=== PATIENT | female | born 1955 | race Caucasian/White ===

== ENCOUNTER 2023-03-05 17:00 | Inpatient (IN) | payer OTHER, SELFPAY ==
[2023-03-05] VITALS (20 sets, daily range): BP systolic 120–164; BP diastolic 61–77; PULSE 87–112; RESP 13–27; TEMP 36.3–37; O2SAT 97–100; BMI 24.3
--- NOTE | 2023-03-05 17:19 | DI.RAD.S_ITS ---
PROCEDURE: XR CHEST 1V INDICATIONS: chest pain TECHNIQUE: One view of the chest was acquired. COMPARISON: None. FINDINGS: Surgical changes and devices: None. Lungs and pleura: Lungs are clear. No pleural effusions or pneumothorax. Mediastinum: The cardiac contours are within normal limits. The aorta demonstrates calcification and tortuosity. Bones and chest wall: No suspicious bony lesions. Age-appropriate bony degenerative changes are seen. Overlying soft tissues appear unremarkable. IMPRESSION: No acute cardiopulmonary process is seen. Dictated by: Stevo Nino M.D. on 03/05/2023 at 17:16 Approved by: Stevo Nino M.D. on 03/05/2023 at 17:16
[2023-03-05 17:37] LABS: Mean Corpuscular HGB Conc 28.2 % (30-36); Mean Corpuscular Hemoglobin 15.4 PG (26-34); Mean Corpuscular Volume 54.5 fL (80-100); Platelet Count 101 X10^3/uL (150-400); Red Blood Cell Count 2.47 X10^6/uL (4.0-5.2); Red Cell Distribution Width 20.4 % (11.6-14.8)
[2023-03-05 17:44] LABS: Prothrombin Time 22.6 SECONDS (10.1-12.7)
[2023-03-05 17:47] LABS: PTT Partial Thromboplastin Tim 35 SECONDS (26-36)
[2023-03-05 17:48] LABS: Alanine Aminotransferase 24 IU/L (<35); Alkaline Phosphatase 104 U/L (38-126); Aspartate Aminotransferase 33 IU/L (14-36); BUN Creatinine Ratio 18.9 (6-22); Bilirubin Total 0.9 mg/dL (0.2-1.3); Blood Urea Nitrogen 10 mg/dL (7-17); Calcium 7.8 mg/dL (8.4-10.2); Carbon Dioxide 16 mmol/L (22-32); Chloride 110 mmol/L (98-107); Creatine Kinase 49 U/L (30-135); Estimated Glomerular Filt Rate > 60 mL/min (>60); Globulin 3.1 g/dL (1.7-4.1); Glucose 125 mg/dL (80-110); HEMOLYSIS < 15 (0-50); Lipase 438 U/L (23-300); Magnesium 2.1 mg/dL (1.6-2.3); Potassium 3.3 mmol/L (3.4-5.1); Sodium 137 mmol/L (137-145); Total Protein 6.1 g/dL (6.3-8.2)
[2023-03-05 17:59] LABS: Troponin I 0.019 ng/mL (0.01-0.034)
[2023-03-05 18:08] LABS: Hemoglobin 3.8 g/dL (12.0-16.0)
[2023-03-05 18:09] LABS: Add Manual Diff / Slide Review YES; Hematocrit 13.5 % (36-46)
[2023-03-05 18:20] LABS: Microcytosis 3+; Neutrophils Absolute Manual 1800 /uL (3000-5900); Total Cells Counted 100
[2023-03-05 18:21] LABS: Anisocytosis 1+; Hypochromasia 3+
[2023-03-05 18:22] LABS: NT-proBNP (BNP-Adult 18+) 692 pg/mL (<125)
[2023-03-05 18:26] LABS: COVID19 -Nasal RAPID Negative (Negative)
--- NOTE | 2023-03-05 18:57 | DI.CT.S_ITS ---
PROCEDURE: CT CHEST ABD PEL W CON INDICATIONS: pancytopenia;hgb 3.8 TECHNIQUE: After the administration of oral and intravenous contrast, axial sections acquired from the supraclavicular neck to the pubic symphysis. Coronal and sagittal reformats were performed. For radiation dose reduction, the following was used: automated exposure control, adjustment of mA and/or kV according to patient size. COMPARISON: None. FINDINGS: Image quality: Excellent. CHEST: Lower Neck: No enlarged lymph nodes. Thyroid: Within normal limits. Axillae: No enlarged lymph nodes. Chest Wall: Unremarkable. Lungs and Airways: No acute airspace opacity. Left lower lobe pulmonary nodule measuring 0.4 cm. Airways are clear. Pleura: No pneumothorax or pleural effusions. Heart: Heart size is normal. No pericardial effusion. Thoracic Vessels: The aorta and pulmonary arteries demonstrate normal size. Moderate plaque at the aortic arch. Mediastinum and Radha: No enlarged lymph nodes. Esophagus: No wall thickening. No hiatal hernia. ABDOMEN: Liver: Cirrhotic liver morphology. No focal lesion is identified on this single phase exam.. Gallbladder: Small gallstones. Trace pericholecystic fluid. Not distended. Biliary ducts: Unremarkable. Pancreas: Unremarkable. Spleen: Spleen is at the upper limits of normal. Adrenal Glands: Unremarkable. Kidneys and Ureters: No hydronephrosis. Stomach and Bowel: Stomach, small bowel loops, and colon are unremarkable. Small duodenal diverticulum. Diverticulosis. Normal appendix. Peritoneum: Small to moderate volume of ascites. No pneumoperitoneum. Ventral Wall: No hernia. Abdominal Nodes: No retroperitoneal or mesenteric adenopathy by size criteria. Vessels: Aortic ectasia. Moderate to severe plaque. Upper abdominal varices. Portal vein is patent. PELVIS: Pelvic Organs: Unremarkable. Bladder: Unremarkable. Pelvic Nodes: No enlarged lymph nodes. Miscellaneous: No inguinal hernias are seen. Bones: No suspicious lesion. No compression fracture. Lower lumbar spine DDD. IMPRESSION: 1. Lungs are clear. 2. Cirrhosis. Consider screening for HCC with multiphase liver CT or MRI. 3. [id number] volume of ascites. Upper abdominal varices. 4. Gallstones. 5. No adenopathy. Dictated by: Oliver Montiel M.D. on 03/05/2023 at 20:23 Approved by: Oliver Montiel M.D. on 03/05/2023 at 20:33
--- NOTE | 2023-03-05 20:15 | ED.SOB ---
HPI - SOB/Dyspnea <[place] PA-C - Last Filed: 03/05/23 21:33> General Chief Complaint: Shortness of Breath/Dyspnea Stated Complaint: short of breath, chest pain Time Seen by Provider: 03/05/23 17:40 History of Present Illness HPI Narrative: 68-year-old female with no reported past medical history Hep C, s/p treatment for HepC presents to the ED with 4-6 weeks of fatigue, dyspnea, chest tightness. Patient states that she has had worsening symptoms over the last 4 to week 6 weeks. Denies fever, chills, rhinorrhea, cough, sore throat, abdominal pain, dysuria, dizziness, syncope. Patient does endorse feeling winded after walking a few steps, sometimes feels lightheaded but has never syncopized. Patient takes daily baby aspirin which she was advised to do several years ago. Patient denies hematochezia, melena, diarrhea, constipation. Patient is a daily smoker, has smoked since age 12. Patient drinks about 2 alcoholic drinks daily. Related Data Home Medications Medication Instructions Recorded Confirmed No Known Home Medications 01/06/20 03/05/23 Allergies Allergy/AdvReac Type Severity Reaction Status Date / Time Sulfa (Sulfonamide Allergy Mild stomach Verified 03/05/23 19:36 Antibiotics) issues Review of Systems <[place] PA-C - Last Filed: 03/05/23 21:33> Review of Systems ROS Unobtainable: All systems reviewed & are unremarkable except as noted in HPI and below Constitutional Constitutional: Denies chills, Reports fatigue, Denies fever(s), Denies frequent falls, Reports lethargy and Denies weakness Comments: Lightheadedness Eyes Eyes: Denies change in vision, Denies eye discharge, Denies irritation and Denies loss of vision ENT Ears, Nose, Mouth, and Throat: Denies change in voice, Denies dizziness, Denies neck pain, Denies sore throat and Denies throat swelling Cardiovascular Cardiovascular: Denies chest pain, Denies irregular heart rhythm, Denies lightheadedness, Denies palpitations, Reports dyspnea, Reports dyspnea on exertion and Denies orthopnea Respiratory Respiratory: Denies cough, Reports dyspnea, Reports dyspnea on exertion and Denies wheezing Gastrointestinal Gastrointestinal: Denies abdominal pain, Denies change in bowel habits, Denies diarrhea, Denies nausea and Denies vomiting Genitourinary Genitourinary: Denies hematuria, Denies flank pain, Denies urinary incontinence and Denies urinary urgency Musculoskeletal Musculoskeletal: Denies back pain, Denies muscle weakness, Denies neck pain, Denies numbness and Denies tingling Integumentary/Breasts Skin/Breast: Denies pruritus, Denies erythema, Denies rash and Denies wounds Neurologic Neurologic: Denies behavioral changes, Denies confusion, Denies dizziness, Denies frequent falls, Denies loss of vision, Denies numbness, Denies tingling and Denies weakness Psychiatric Psychiatric: Denies anxiety, Denies behavioral changes, Denies confusion, Denies depression, Denies homicidal ideation and Denies suicidal ideation Endocrine Endocrine: Reports fatigue, Denies flushing and Denies palpitations Hematologic/Lymphatic Hematologic/Lymphatic: Denies easy bruising Allergic/Immunologic Allergic/Immunologic: Denies urticaria, Denies throat swelling and Denies wheezing Patient History <[place] PA-C - Last Filed: 03/05/23 21:33> Medical History (Updated 03/05/23 @ 21:33 by Toro Thomas DO) Bronchitis Social History Smoking Status: Current every day smoker Smoking Status: Current every day smoker tobacco type: cigarettes alcohol intake frequency: a few times a week Substance Use Type: does not use Exam <[place] PA-C - Last Filed: 03/05/23 21:33> Narrative Exam Narrative: Const General:?cooperative, healthy appearing and comfortable; skin appears pale HENMT Head:?normal to inspection Ears:?hearing grossly normal bilaterally Nose:?external nose normal Face and sinus:?normal facial exam and sinuses nontender Mouth:?oral mucosae normal Throat:?posterior oropharynx normal Eyes General:?appearance normal, both eyes and all related structures Neck Neck:?normal visual inspection and no lymphadenopathy noted Resp Effort & Inspection:? Patient is saturating well on room air, appears somewhat out of breath when talking. However is able to talk full sentences. Auscultation:?clear to auscultation bilaterally Cardio Rate:?regular rate Rhythm:?regular rhythm GI Abdomen is soft, somewhat distended. Abdomen is nontender to palpation. There is no CVA tenderness. Neuro General:?patient alert, patient awake and patient oriented x3 Initial Vital Signs Initial Vital Signs: Vital Signs Temperature 97.4 F L 03/05/23 17:10 Pulse Rate 88 03/05/23 17:10 Respiratory Rate 18 03/05/23 17:10 Blood Pressure 147/65 H 03/05/23 17:10 Pulse Oximetry 100 03/05/23 17:10 Oxygen Delivery Method Room Air 03/05/23 17:10 <Toro Thomas DO - Last Filed: 03/05/23 21:40> Initial Vital Signs Initial Vital Signs: Vital Signs Temperature 97.4 F L 03/05/23 17:10 Pulse Rate 88 03/05/23 17:10 Respiratory Rate 18 03/05/23 17:10 Blood Pressure 147/65 H 03/05/23 17:10 Pulse Oximetry 100 03/05/23 17:10 Oxygen Delivery Method Room Air 03/05/23 17:10 Course <[place] PA-C - Last Filed: 03/05/23 21:33> Orders Ordered: ED Orders 03/05/23 17:19 XR chest 1V Stat EKG-12 Lead Stat 03/05/23 17:25 BNP [NT-proBNP (BNP-Adult 18+)] Stat Complete Blood Count AUTO DIFF Stat Comprehensive Metabolic Panel Stat Lipase Stat Magnesium Stat PTT Partial Thromboplastin Trevor Stat Pathologist Review (for CBC) Stat Prothrombin Time INR Stat Troponin & CK Cardiac Panel Stat 03/05/23 17:57 Packed Cells Stat Type and Screen Stat 03/05/23 18:00 COVID19 -Nasal RAPID Stat 03/05/23 18:57 CT chest abd pel w con Stat Vital Signs Vital signs: Vital Signs - 8 hr 03/05/23 17:10 03/05/23 17:44 03/05/23 18:00 Temperature 97.4 F L Pulse Rate 88 110 H Respiratory Rate 18 27 H Blood Pressure 147/65 H 159/73 H Pulse Oximetry 100 100 Oxygen Delivery Method Room Air 03/05/23 18:00 03/05/23 19:11 03/05/23 19:25 Temperature 97.7 F 98.4 F Pulse Rate 95 H 101 H 92 H Respiratory Rate 17 22 22 Blood Pressure 164/73 H 146/65 H Pulse Oximetry 100 Oxygen Delivery Method 03/05/23 18:30 03/05/23 18:30 03/05/23 19:00 Temperature Pulse Rate 92 H Respiratory Rate 15 Blood Pressure 125/61 147/67 H Pulse Oximetry 99 Oxygen Delivery Method 03/05/23 19:00 03/05/23 19:10 03/05/23 19:10 Temperature Pulse Rate 87 112 H Respiratory Rate 23 20 Blood Pressure 164/73 H Pulse Oximetry 100 Oxygen Delivery Method Room Air 03/05/23 19:36 03/05/23 19:26 03/05/23 19:26 Temperature 98.3 F Pulse Rate 89 92 H Respiratory Rate 20 23 Blood Pressure 146/65 H Pulse Oximetry 100 Oxygen Delivery Method Room Air 03/05/23 19:30 03/05/23 19:30 03/05/23 20:00 Temperature Pulse Rate 89 93 H Respiratory Rate 17 18 Blood Pressure 147/69 H Pulse Oximetry 100 100 Oxygen Delivery Method 03/05/23 20:00 03/05/23 20:30 03/05/23 20:30 Temperature Pulse Rate 87 Respiratory Rate 13 Blood Pressure 152/68 H 141/67 H Pulse Oximetry 100 Oxygen Delivery Method Room Air 03/05/23 21:00 03/05/23 21:00 Temperature Pulse Rate 89 Respiratory Rate 20 Blood Pressure 156/70 H Pulse Oximetry 100 Oxygen Delivery Method Room Air <Toro Thomas, DO - Last Filed: 03/05/23 21:40> Orders Ordered: ED Orders 03/05/23 17:19 XR chest 1V Stat EKG-12 Lead Stat 03/05/23 17:25 BNP [NT-proBNP (BNP-Adult 18+)] Stat Complete Blood Count AUTO DIFF Stat Comprehensive Metabolic Panel Stat Lipase Stat Magnesium Stat PTT Partial Thromboplastin Trevor Stat Pathologist Review (for CBC) Stat Prothrombin Time INR Stat Troponin & CK Cardiac Panel Stat 03/05/23 17:57 Packed Cells Stat Type and Screen Stat 03/05/23 18:00 COVID19 -Nasal RAPID Stat 03/05/23 18:57 CT chest abd pel w con Stat Vital Signs Vital signs: Vital Signs - 8 hr 03/05/23 17:10 03/05/23 17:44 03/05/23 18:00 Temperature 97.4 F L Pulse Rate 88 110 H Respiratory Rate 18 27 H Blood Pressure 147/65 H 159/73 H Pulse Oximetry 100 100 Oxygen Delivery Method Room Air 03/05/23 18:00 03/05/23 19:11 03/05/23 19:25 Temperature 97.7 F 98.4 F Pulse Rate 95 H 101 H 92 H Respiratory Rate 17 22 22 Blood Pressure 164/73 H 146/65 H Pulse Oximetry 100 Oxygen Delivery Method 03/05/23 18:30 03/05/23 18:30 03/05/23 19:00 Temperature Pulse Rate 92 H Respiratory Rate 15 Blood Pressure 125/61 147/67 H Pulse Oximetry 99 Oxygen Delivery Method 03/05/23 19:00 03/05/23 19:10 03/05/23 19:10 Temperature Pulse Rate 87 112 H Respiratory Rate 23 20 Blood Pressure 164/73 H Pulse Oximetry 100 Oxygen Delivery Method Room Air 03/05/23 19:36 03/05/23 19:26 03/05/23 19:26 Temperature 98.3 F Pulse Rate 89 92 H Respiratory Rate 20 23 Blood Pressure 146/65 H Pulse Oximetry 100 Oxygen Delivery Method Room Air 03/05/23 19:30 03/05/23 19:30 03/05/23 20:00 Temperature Pulse Rate 89 93 H Respiratory Rate 17 18 Blood Pressure 147/69 H Pulse Oximetry 100 100 Oxygen Delivery Method 03/05/23 20:00 03/05/23 20:30 03/05/23 20:30 Temperature Pulse Rate 87 Respiratory Rate 13 Blood Pressure 152/68 H 141/67 H Pulse Oximetry 100 Oxygen Delivery Method Room Air 03/05/23 21:00 03/05/23 21:00 Temperature Pulse Rate 89 Respiratory Rate 20 Blood Pressure 156/70 H Pulse Oximetry 100 Oxygen Delivery Method Room Air MDM - SOB/Dyspnea <[place] PA-C - Last Filed: 03/05/23 21:33> Lab Data 03/05/23 17:25 03/05/23 17:25 Labs: Lab Results 03/05/23 03/05/23 03/05/23 Range/Units 17:25 17:25 17:25 WBC 3.0 L (4.5-11.0) X10^3/uL RBC 2.47 L (4.0-5.2) X10^6/uL Hgb 3.8 L* (12.0-16.0) g/dL Hct 13.5 L* (36-46) % MCV 54.5 L (80-100) fL MCH 15.4 L (26-34) PG MCHC 28.2 L (30-36) % RDW 20.4 H (11.6-14.8) % Plt Count 101 L (150-400) X10^3/uL Neut % (Auto) Not Reportable Lymph % (Auto) Not Reportable [place] % (Auto) Not Reportable Eos % (Auto) Not Reportable Baso % (Auto) Not Reportable Lymph # (Auto) Not Reportable [place] # (Auto) Not Reportable Baso # (Auto) Not Reportable Total Counted 100 Seg Neutrophils % 59.0 (38-70) % Band Neutrophils % 1.0 L (3-7) % Lymphocytes % (Manual) 29.0 (25-45) % Monocytes % (Manual) 7.0 (2-11) % Eosinophils % (Manual) 3.0 (2-4) % Basophils % (Manual) 1.0 (0-1) % Neutrophils # (Manual) 1800 L (1138-1237) /uL RBC Morphology See below Hypochromasia 3+ H Anisocytosis 1+ H Microcytosis 3+ H PT 22.6 H (10.1-12.7) SECONDS INR 2.0 H (0.9-1.3) APTT 35 (26-36) SECONDS Sodium 137 (137-145) mmol/L Potassium 3.3 L (3.4-5.1) mmol/L Chloride 110 H (98-107) mmol/L Carbon Dioxide 16 L (22-32) mmol/L BUN 10 (7-17) mg/dL Creatinine 0.53 (0.52-1.04) mg/dL Estimated GFR > 60 (>60) mL/min BUN/Creatinine Ratio 18.9 (6-22) Glucose 125 H (80-110) mg/dL Calcium 7.8 L (8.4-10.2) mg/dL Magnesium 2.1 (1.6-2.3) mg/dL Total Bilirubin 0.9 (0.2-1.3) mg/dL AST 33 (14-36) IU/L ALT 24 (<35) IU/L Alkaline Phosphatase 104 (38-126) U/L Total Creatine Kinase 49 (30-135) U/L CK-MB (CK-2) TNP CK-MB (CK-2) Rel Index TNP Troponin I 0.019 (0.01-0.034) ng/mL NT-Pro-B Natriuret Pep (<125) pg/mL Total Protein 6.1 L (6.3-8.2) g/dL Albumin 3.0 L (3.5-5.0) g/dL Globulin 3.1 (1.7-4.1) g/dL Albumin/Globulin Ratio 1.0 (1.0-2.8) Lipase 438 H (23-300) U/L SARS-CoV-2 (PCR) (Negative) Blood Type Antibody Screen Crossmatch 03/05/23 03/05/23 03/05/23 Range/Units 17:25 17:57 18:00 WBC (4.5-11.0) X10^3/uL RBC (4.0-5.2) X10^6/uL Hgb (12.0-16.0) g/dL Hct (36-46) % MCV (80-100) fL MCH (26-34) PG MCHC (30-36) % RDW (11.6-14.8) % Plt Count (150-400) X10^3/uL Neut % (Auto) Lymph % (Auto) [place] % (Auto) Eos % (Auto) Baso % (Auto) Lymph # (Auto) [place] # (Auto) Baso # (Auto) Total Counted Seg Neutrophils % (38-70) % Band Neutrophils % (3-7) % Lymphocytes % (Manual) (25-45) % Monocytes % (Manual) (2-11) % Eosinophils % (Manual) (2-4) % Basophils % (Manual) (0-1) % Neutrophils # (Manual) (6480-9370) /uL RBC Morphology Hypochromasia Anisocytosis Microcytosis PT (10.1-12.7) SECONDS INR (0.9-1.3) APTT (26-36) SECONDS Sodium (137-145) mmol/L Potassium (3.4-5.1) mmol/L Chloride (98-107) mmol/L Carbon Dioxide (22-32) mmol/L BUN (7-17) mg/dL Creatinine (0.52-1.04) mg/dL Estimated GFR (>60) mL/min BUN/Creatinine Ratio (6-22) Glucose (80-110) mg/dL Calcium (8.4-10.2) mg/dL Magnesium (1.6-2.3) mg/dL Total Bilirubin (0.2-1.3) mg/dL AST (14-36) IU/L ALT (<35) IU/L Alkaline Phosphatase (38-126) U/L Total Creatine Kinase (30-135) U/L CK-MB (CK-2) CK-MB (CK-2) Rel Index Troponin I (0.01-0.034) ng/mL NT-Pro-B Natriuret Pep 692 H (<125) pg/mL Total Protein (6.3-8.2) g/dL Albumin (3.5-5.0) g/dL Globulin (1.7-4.1) g/dL Albumin/Globulin Ratio (1.0-2.8) Lipase (23-300) U/L SARS-CoV-2 (PCR) Negative (Negative) Blood Type O Negative Antibody Screen Negative Crossmatch See Detail MDM Narrative Medical decision making narrative: 68-year-old female with no reported past medical history presents to the ED with 4-6 weeks of fatigue, dyspnea, chest tightness. Concern for ACS versus pneumonia versus anemia versus dehydration versus PE versus URI versus malignancy versus other. Will obtain labs, EKG, chest x-ray, troponin, BNP. Hemoglobin critically low at 3.8. Hematocrit 13.5. WBC low at 3.0, platelets low at 101. Will obtain CT chest abdomen pelvis, peripheral blood smear. Will type and screen, transfuse packed RBCs. Transfusion is in progress, patient is tolerating it well. Is stable in the ED. CT shows cirrhosis, with possibility for HCC. There is also [id number] volume of ascites and upper abdominal varices. Child Bell score of 9. Will admit patient for continued transfusions for the anemia and possibly further workup for the cirrhosis. Patient accepted for admission by Dr. Guajardo. <Toro Thomas DO - Last Filed: 03/05/23 21:40> Lab Data Labs: Lab Results 03/05/23 03/05/23 03/05/23 Range/Units 17:25 17:25 17:25 WBC 3.0 L (4.5-11.0) X10^3/uL RBC 2.47 L (4.0-5.2) X10^6/uL Hgb 3.8 L* (12.0-16.0) g/dL Hct 13.5 L* (36-46) % MCV 54.5 L (80-100) fL MCH 15.4 L (26-34) PG MCHC 28.2 L (30-36) % RDW 20.4 H (11.6-14.8) % Plt Count 101 L (150-400) X10^3/uL Neut % (Auto) Not Reportable Lymph % (Auto) Not Reportable [place] % (Auto) Not Reportable Eos % (Auto) Not Reportable Baso % (Auto) Not Reportable Lymph # (Auto) Not Reportable [place] # (Auto) Not Reportable Baso # (Auto) Not Reportable Total Counted 100 Seg Neutrophils % 59.0 (38-70) % Band Neutrophils % 1.0 L (3-7) % Lymphocytes % (Manual) 29.0 (25-45) % Monocytes % (Manual) 7.0 (2-11) % Eosinophils % (Manual) 3.0 (2-4) % Basophils % (Manual) 1.0 (0-1) % Neutrophils # (Manual) 1800 L (2414-7478) /uL RBC Morphology See below Hypochromasia 3+ H Anisocytosis 1+ H Microcytosis 3+ H PT 22.6 H (10.1-12.7) SECONDS INR 2.0 H (0.9-1.3) APTT 35 (26-36) SECONDS Sodium 137 (137-145) mmol/L Potassium 3.3 L (3.4-5.1) mmol/L Chloride 110 H (98-107) mmol/L Carbon Dioxide 16 L (22-32) mmol/L BUN 10 (7-17) mg/dL Creatinine 0.53 (0.52-1.04) mg/dL Estimated GFR > 60 (>60) mL/min BUN/Creatinine Ratio 18.9 (6-22) Glucose 125 H (80-110) mg/dL Calcium 7.8 L (8.4-10.2) mg/dL Magnesium 2.1 (1.6-2.3) mg/dL Total Bilirubin 0.9 (0.2-1.3) mg/dL AST 33 (14-36) IU/L ALT 24 (<35) IU/L Alkaline Phosphatase 104 (38-126) U/L Total Creatine Kinase 49 (30-135) U/L CK-MB (CK-2) TNP CK-MB (CK-2) Rel Index TNP Troponin I 0.019 (0.01-0.034) ng/mL NT-Pro-B Natriuret Pep (<125) pg/mL Total Protein 6.1 L (6.3-8.2) g/dL Albumin 3.0 L (3.5-5.0) g/dL Globulin 3.1 (1.7-4.1) g/dL Albumin/Globulin Ratio 1.0 (1.0-2.8) Lipase 438 H (23-300) U/L SARS-CoV-2 (PCR) (Negative) Blood Type Antibody Screen Crossmatch 03/05/23 03/05/23 03/05/23 Range/Units 17:25 17:57 18:00 WBC (4.5-11.0) X10^3/uL RBC (4.0-5.2) X10^6/uL Hgb (12.0-16.0) g/dL Hct (36-46) % MCV (80-100) fL MCH (26-34) PG MCHC (30-36) % RDW (11.6-14.8) % Plt Count (150-400) X10^3/uL Neut % (Auto) Lymph % (Auto) [place] % (Auto) Eos % (Auto) Baso % (Auto) Lymph # (Auto) [place] # (Auto) Baso # (Auto) Total Counted Seg Neutrophils % (38-70) % Band Neutrophils % (3-7) % Lymphocytes % (Manual) (25-45) % Monocytes % (Manual) (2-11) % Eosinophils % (Manual) (2-4) % Basophils % (Manual) (0-1) % Neutrophils # (Manual) (4203-4924) /uL RBC Morphology Hypochromasia Anisocytosis Microcytosis PT (10.1-12.7) SECONDS INR (0.9-1.3) APTT (26-36) SECONDS Sodium (137-145) mmol/L Potassium (3.4-5.1) mmol/L Chloride (98-107) mmol/L Carbon Dioxide (22-32) mmol/L BUN (7-17) mg/dL Creatinine (0.52-1.04) mg/dL Estimated GFR (>60) mL/min BUN/Creatinine Ratio (6-22) Glucose (80-110) mg/dL Calcium (8.4-10.2) mg/dL Magnesium (1.6-2.3) mg/dL Total Bilirubin (0.2-1.3) mg/dL AST (14-36) IU/L ALT (<35) IU/L Alkaline Phosphatase (38-126) U/L Total Creatine Kinase (30-135) U/L CK-MB (CK-2) CK-MB (CK-2) Rel Index Troponin I (0.01-0.034) ng/mL NT-Pro-B Natriuret Pep 692 H (<125) pg/mL Total Protein (6.3-8.2) g/dL Albumin (3.5-5.0) g/dL Globulin (1.7-4.1) g/dL Albumin/Globulin Ratio (1.0-2.8) Lipase (23-300) U/L SARS-CoV-2 (PCR) Negative (Negative) Blood Type O Negative Antibody Screen Negative Crossmatch See Detail Discharge Plan Departure Patient Disposition: Admitted As Inpatient Clinical Impression: Anemia, Thrombocytopenia, Abdominal ascites, Cirrhosis Admit Date/Time: 03/05/23 21:37 Admit Provider: Kraig Guajardo <Toro Thomas, - Last Filed: 03/05/23 21:40> Cosign ED Attending Cosignature Attestation: Dr Thomas Co-Sign Statement: I was available for consultation during this patient's emergency department visit. This chart is signed by myself for administrative purposes only. I did not have direct contact with this patient during this visit. They were seen independently by the APC.
[2023-03-05 21:45] LABS: Appearance Urine UA CLEAR; Bilirubin Urine UA NEGATIVE (NEGATIVE); Color Urine UA YELLOW; Glucose Urine UA NEGATIVE (Negative); Ketones Urine UA NEGATIVE (NEGATIVE); Leukocyte Esterase Urine UA NEGATIVE (NEGATIVE); Nitrite Urine UA POSITIVE (Negative); Occult Blood Urine UA NEGATIVE (Negative); Protein Urine UA NEGATIVE (Negative)
[2023-03-05 21:56] LABS: Bacteria Urine Many (>30); Culture Indicated Urine Specimen Cultured; RBC Urine None Seen (0-5/HPF); Squamous Epithelial Cell Urine None Seen (0-5/HPF); WBC Urine 0-1/HPF (0-5/HPF)
[2023-03-05] MEDS: ACETAMINOPHEN 325 MG TABLET 650 MG PO (23:59)
[2023-03-06] VITALS (22 sets, daily range): BP systolic 115–148; BP diastolic 60–75; PULSE 72–93; RESP 16–21; TEMP 36.6–37.1; O2SAT 94–100
[2023-03-06 06:49] LABS: Basophils Absolute Auto 100 /uL (0-100); Basophils Percent Auto 1.7 % (0-2); Eosinophils Absolute Auto 100 /uL (0-450); Eosinophils Percent Auto 4.4 % (2-4); Hematocrit 21.4 % (36-46); Lymphocytes Absolute Auto 1000 /uL (1100-4500); Lymphocytes Percent Auto 29.3 % (25-40); Mean Corpuscular HGB Conc 31.9 % (30-36); Mean Corpuscular Hemoglobin 20.4 PG (26-34); Mean Corpuscular Volume 63.9 fL (80-100); Monocytes Absolute Auto 600 /uL (0-900); Monocytes Percent Auto 17.8 % (3-14); Neutrophils Absolute Auto 1600 /uL (1500-7000); Neutrophils Percent Auto 46.8 % (50-75); Platelet Count 90 X10^3/uL (150-400); Red Blood Cell Count 3.34 X10^6/uL (4.0-5.2); White Blood Cell Count 3.4 X10^3/uL (4.5-11.0)
[2023-03-06 06:52] LABS: Add Manual Diff / Slide Review SLIDE REVIEW; Hemoglobin 6.8 g/dL (12.0-16.0)
[2023-03-06 06:53] LABS: Alanine Aminotransferase 21 IU/L (<35); Albumin 2.7 g/dL (3.5-5.0); Alkaline Phosphatase 95 U/L (38-126); Aspartate Aminotransferase 28 IU/L (14-36); Bilirubin Total 4.2 mg/dL (0.2-1.3); Blood Urea Nitrogen 8 mg/dL (7-17); Calcium 7.5 mg/dL (8.4-10.2); Carbon Dioxide 17 mmol/L (22-32); Chloride 113 mmol/L (98-107); Estimated Glomerular Filt Rate > 60 mL/min (>60); Globulin 2.8 g/dL (1.7-4.1); Glucose 85 mg/dL (80-110); HEMOLYSIS < 15 (0-50); Lipase 211 U/L (23-300); Potassium 3.3 mmol/L (3.4-5.1); Sodium 137 mmol/L (137-145); Total Protein 5.5 g/dL (6.3-8.2)
[2023-03-06 07:47] LABS: Hypochromasia 2+; Microcytosis 3+; Poikilocytosis 1+
[2023-03-06] MEDS: POTASSIUM CHLORIDE 20 MEQ TAB 40 MEQ PO ×2 (08:54→18:28)
--- NOTE | 2023-03-06 09:16 | P.HP_ITS ---
History of Present Illness History of Present Illness Date Patient Seen: 03/06/23 Time Patient Seen: 09:17 Date of Onset of Symptoms: 02/20/23 Chief complaint: short of breath, chest pain Narrative: Pt presented to ED with 2 weeks of worsening fatigue. Found to be pancytopenic. 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 Reports hx of hepatitis as a teen that was never treated - tested positive for HCV as an adult and did receive treatment 6-7 years ago was told cured. CT shows cirrhosis/possible HCC and moderate ascites. Feels generally ok this morning after 4 Us PRBCs - some wheezing noted, able to get up and get to bathroom ok feels steady on her feet. appetite has been ok, no recent illness, no nausea no bwel issues no headaches just mostly fatigue. [facility] Medical History (Updated 03/05/23 @ 21:33 by Toro Thomas DO) Bronchitis Social History household members: none Smoking Status: Current every day smoker alcohol intake: current Meds Home Medications and Allergies Home Medications Medication Instructions Recorded Confirmed Type No Known Home Medications 01/06/20 03/05/23 History Allergies Allergy/AdvReac Type Severity Reaction Status Date / Time Sulfa (Sulfonamide Allergy Mild stomach Verified 03/05/23 19:36 Antibiotics) issues Review of Systems Review of Systems Narrative: all systems reviewed and negative except as otherwise noted in HPI Exam Vital Signs (past 8 hours): - 03/06/23 03:20 03/06/23 03:29 03/06/23 03:45 Temperature 98.7 F 98.8 F 98.2 F Pulse Rate 88 88 88 Respiratory Rate 18 18 18 Blood Pressure 124/70 124/70 132/74 Pulse Oximetry Oxygen Flow Rate 03/06/23 04:00 03/06/23 03:51 03/06/23 08:00 Temperature 98.2 F 98.6 F 98.2 F Pulse Rate 82 89 81 Respiratory Rate 18 18 17 Blood Pressure 130/62 128/65 115/63 Pulse Oximetry 98 94 Oxygen Flow Rate 0 Oxygen Delivery Method Room Air Oxygen Flow Rate 0 Narrative Exam Narrative: cheerful lady laying in hospital bed Resp Other: moving air ok not on supplemental o2, bibasilar crackles, mild wheezing expiratory Cardio Other: regular rate and rhythm, s1/s2 GI Other: normal bowel sounds no CVA TTP Skin Other: color ok, refill <3secs Neuro General: patient alert, patient awake and patient oriented x3 Extrem General: full ROM and no pedal edema Psych Appearance: grossly normal Mental Status: mental status grossly normal Speech and Movement: speech and movement normal Objective Labs 03/06/23 17:45 03/06/23 06:30 Labs: Laboratory Results - last 24 hr 03/05/23 03/05/23 03/05/23 17:25 17:25 17:25 WBC 3.0 L RBC 2.47 L Hgb 3.8 L* Hct 13.5 L* MCV 54.5 L MCH 15.4 L MCHC 28.2 L RDW 20.4 H Plt Count 101 L Neut % (Auto) Not Reportable Lymph % (Auto) Not Reportable Gl[place]ock % (Auto) Not Reportable Eos % (Auto) Not Reportable Baso % (Auto) Not Reportable Neut # (Auto) Lymph # (Auto) Not Reportable [place] # (Auto) Not Reportable Eos # (Auto) Baso # (Auto) Not Reportable Total Counted 100 Seg Neutrophils % 59.0 Band Neutrophils % 1.0 L Lymphocytes % (Manual) 29.0 Monocytes % (Manual) 7.0 Eosinophils % (Manual) 3.0 Basophils % (Manual) 1.0 Neutrophils # (Manual) 1800 L RBC Morphology See below Hypochromasia 3+ H Poikilocytosis Anisocytosis 1+ H Microcytosis 3+ H PT 22.6 H INR 2.0 H APTT 35 Sodium 137 Potassium 3.3 L Chloride 110 H Carbon Dioxide 16 L BUN 10 Creatinine 0.53 Estimated GFR > 60 BUN/Creatinine Ratio 18.9 Glucose 125 H Calcium 7.8 L Magnesium 2.1 Total Bilirubin 0.9 AST 33 ALT 24 Alkaline Phosphatase 104 Total Creatine Kinase 49 CK-MB (CK-2) TNP CK-MB (CK-2) Rel Index TNP Troponin I 0.019 NT-Pro-B Natriuret Pep Total Protein 6.1 L Albumin 3.0 L Globulin 3.1 Albumin/Globulin Ratio 1.0 Lipase 438 H Urine Color Urine Appearance Urine pH Ur Specific Glide Urine Protein Urine Glucose (UA) Urine Ketones Urine Occult Blood Urine Nitrate Urine Bilirubin Urine Urobilinogen Ur Leukocyte Esterase Urine RBC Urine WBC Ur Squamous Epith Cells Urine Bacteria Ur Culture Indicated? SARS-CoV-2 (PCR) Blood Type Antibody Screen Crossmatch 03/05/23 03/05/23 03/05/23 17:25 17:57 18:00 WBC RBC Hgb Hct MCV MCH MCHC RDW Plt Count Neut % (Auto) Lymph % (Auto) Glascock % (Auto) Eos % (Auto) Baso % (Auto) Neut # (Auto) Lymph # (Auto) [place] # (Auto) Eos # (Auto) Baso # (Auto) Total Counted Seg Neutrophils % Band Neutrophils % Lymphocytes % (Manual) Monocytes % (Manual) Eosinophils % (Manual) Basophils % (Manual) Neutrophils # (Manual) RBC Morphology Hypochromasia Poikilocytosis Anisocytosis Microcytosis PT INR APTT Sodium Potassium Chloride Carbon Dioxide BUN Creatinine Estimated GFR BUN/Creatinine Ratio Glucose Calcium Magnesium Total Bilirubin AST ALT Alkaline Phosphatase Total Creatine Kinase CK-MB (CK-2) CK-MB (CK-2) Rel Index Troponin I NT-Pro-B Natriuret Pep 692 H Total Protein Albumin Globulin Albumin/Globulin Ratio Lipase Urine Color Urine Appearance Urine pH Ur Specific Glide Urine Protein Urine Glucose (UA) Urine Ketones Urine Occult Blood Urine Nitrate Urine Bilirubin Urine Urobilinogen Ur Leukocyte Esterase Urine RBC Urine WBC Ur Squamous Epith Cells Urine Bacteria Ur Culture Indicated? SARS-CoV-2 (PCR) Negative Blood Type O Negative Antibody Screen Negative Crossmatch See Detail 03/05/23 03/06/23 03/06/23 21:36 06:30 06:30 WBC 3.4 L RBC 3.34 L Hgb 6.8 L* Hct 21.4 L MCV 63.9 L D MCH 20.4 L MCHC 31.9 D RDW 30.0 H Plt Count 90 L Neut % (Auto) 46.8 L Lymph % (Auto) 29.3 Glascock % (Auto) 17.8 H Eos % (Auto) 4.4 H Baso % (Auto) 1.7 Neut # (Auto) 1600 Lymph # (Auto) 1000 L [place] # (Auto) 600 Eos # (Auto) 100 Baso # (Auto) 100 Total Counted Seg Neutrophils % Band Neutrophils % Lymphocytes % (Manual) Monocytes % (Manual) Eosinophils % (Manual) Basophils % (Manual) Neutrophils # (Manual) RBC Morphology Not Reportable Hypochromasia 2+ H Poikilocytosis 1+ H Anisocytosis Microcytosis 3+ H PT INR APTT Sodium 137 Potassium 3.3 L Chloride 113 H Carbon Dioxide 17 L BUN 8 Creatinine 0.47 L Estimated GFR > 60 BUN/Creatinine Ratio 17.0 Glucose 85 Calcium 7.5 L Magnesium Total Bilirubin 4.2 H AST 28 ALT 21 Alkaline Phosphatase 95 Total Creatine Kinase CK-MB (CK-2) CK-MB (CK-2) Rel Index Troponin I NT-Pro-B Natriuret Pep Total Protein 5.5 L Albumin 2.7 L Globulin 2.8 Albumin/Globulin Ratio 1.0 Lipase 211 D Urine Color Yellow Urine Appearance Clear Urine pH 6.0 Ur Specific Glide 1.020 Urine Protein Negative Urine Glucose (UA) Negative Urine Ketones Negative Urine Occult Blood Negative Urine Nitrate Positive H Urine Bilirubin Negative Urine Urobilinogen 1.0 Ur Leukocyte Esterase Negative Urine RBC None seen Urine WBC 0-1/hpf Ur Squamous Epith Cells None seen Urine Bacteria Many (>30) H Ur Culture Indicated? Specimen cultured SARS-CoV-2 (PCR) Blood Type Antibody Screen Crossmatch Assessment & Plan Assessment & Plan narrative: #acute microcytic anemia present on admission Hgb 6.8 this morning after 4 Us will put in for 2 more mildly wheezy will put in some lasix iv also adding some albumin which is low iron deficiency component vs ACD? CBC recheck after xfusions and in a.m. #UTI asymptomatic but in this setting will go ahead and treat rocephin 1g #tobacco abuse prn nicotine patch ordered #cirrhosis #neutropenia #thrombocytopenia #ascites #hx of benign hypertension not on meds #hx of hepatitis C #hyperbilirubinemia complex set of issues here that will need further diagnostic testing. possible underlying HCC? will check HCV ab/reflex quant see if reinfection/failure of cure perhaps? dispo: patient is extremely ill with multiple significant metabolic derangements - her acute anemia on presentation is very risky and requires close management in setting of general pancytopenia and new hepatic issues PCP: vice Brendan Soliz MDM: Dalia or Elmer Sierra code: full diet: heart healthy
[2023-03-06] MEDS: NICOTINE 14 PATCH 14 MG TOP (10:16)
[2023-03-06] MEDS: ALBUMIN HUMAN 50 GM/200 ML VIAL IV (10:18)
[2023-03-06] MEDS: cefTRIAXone 1,000 MG in SODIUM CHLORIDE 0.9% 100 ML 200 MG IV (10:29)
[2023-03-06] MEDS: FUROSEMIDE 40 MG/4 ML VIAL IV (10:29)
--- NOTE | 2023-03-06 11:32 | PC.NURSE ---
[address] Soliz to inform him that there is only one unit of PRBCs in the blood bank for patient and that the blood bank is talking to the pathologist to try to open up more units. Awaiting response from Dr. Soliz. Awaiting more info from the bloodbank.
[2023-03-06] MEDS: HYDROCODONE/ACET 5/325 TABLET 1 TAB PO (12:33)
[2023-03-06] MEDS: CYCLOBENZAPRINE 10 MG TABLET PO (14:42)
--- NOTE | 2023-03-06 17:43 | CM.IDA ---
Initial DCP Assessment Patient is 68 y/o female who presents to due to concern for chest tightness, fatigue and dyspnea. Patient was admitted to to treat Anemia, Thrombocytopenia, Abdominal ascites, and Cirrhosis. Patient has hx Hepatitis C, and ETOH and tobacco use. Patient's PCP is Dr. Soliz, patient has [employer] advantage insurance. HAIR CLIPPER POWER enters room to meet with patient, present in room is patient's daughter and sister. Patient presents as A/Ox4, patient endorses independence with ADLs, patient endorses she drives. 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 Patient endorses several local family supports. Patient endorses she will receive ride home upon d/c from family member. Patient denies any DCP needs. Plan: Patient to d/c to home with family upon medical clearance, No DCP needs at this time. DCP to f/u with any further needs upon POC. MAYELIN Jeronimo Discharge Planning/Care Management CM Discharge Assessment Start: 03/06/23 17:42 Freq: Status: Active Protocol: Document 03/06/23 17:42 LN (Rec: 03/06/23 17:43 LN [id number]) Discharge Planning Assessment Assigned Top Stop Attacher MAYELIN Cedeno Advance Directives? Yes Advance Directives on File No History Provided By Patient,Medical Record Has Patient been admitted in last 30 No days? Prior Living Arrangements House Household Members none Type of transporation used prior to Drives own vehicle admit Independent with ADL's Yes Is patient alert and oriented? Yes Discharge Plan Home Transportation Arrangement Family Referrals Initiated None needed Please Provide Date Initial DC 03/06/23 Assessment Was Performed
[2023-03-06 17:54] LABS: Hematocrit 24.3 % (36-46); Hemoglobin 7.8 g/dL (12.0-16.0); Mean Corpuscular HGB Conc 32.1 % (30-36); Mean Corpuscular Hemoglobin 21.1 PG (26-34); Mean Corpuscular Volume 65.8 fL (80-100); Platelet Count 95 X10^3/uL (150-400); Red Blood Cell Count 3.69 X10^6/uL (4.0-5.2); Red Cell Distribution Width 30.2 % (11.6-14.8); White Blood Cell Count 4.5 X10^3/uL (4.5-11.0)
--- NOTE | 2023-03-06 19:05 | PC.NURSE ---
[address] Soliz and reported Post transfusion H/H of 7.8/24.3. CBC recheck in AM. New order for PRN Flexeril since it helped patient with back spasms tremendously. Brought pain down to 1/10.
[2023-03-07] VITALS: BP 133/73; PULSE 83; RESP 16; TEMP 36.6; O2SAT 98
[2023-03-07 04:00] VITALS: BP 135/77; PULSE 87; RESP 16; TEMP 37.2; O2SAT 98
[2023-03-07 05:31] LABS: Basophils Absolute Auto 0 /uL (0-100); Basophils Percent Auto 0.8 % (0-2); Eosinophils Absolute Auto 100 /uL (0-450); Eosinophils Percent Auto 2.6 % (2-4); Hemoglobin 7.4 g/dL (12.0-16.0); Lymphocytes Absolute Auto 1000 /uL (1100-4500); Lymphocytes Percent Auto 24.6 % (25-40); Mean Corpuscular HGB Conc 32.1 % (30-36); Mean Corpuscular Hemoglobin 21.1 PG (26-34); Mean Corpuscular Volume 65.7 fL (80-100); Monocytes Absolute Auto 600 /uL (0-900); Monocytes Percent Auto 14.6 % (3-14); Neutrophils Absolute Auto 2300 /uL (1500-7000); Neutrophils Percent Auto 57.4 % (50-75); Platelet Count 91 X10^3/uL (150-400); Red Cell Distribution Width 31.2 % (11.6-14.8); White Blood Cell Count 4.1 X10^3/uL (4.5-11.0)
[2023-03-07 05:33] LABS: Add Manual Diff / Slide Review SLIDE REVIEW
[2023-03-07 05:39] LABS: Alanine Aminotransferase 20 IU/L (<35); Albumin 2.8 g/dL (3.5-5.0); Alkaline Phosphatase 94 U/L (38-126); Aspartate Aminotransferase 30 IU/L (14-36); Bilirubin Total 2.1 mg/dL (0.2-1.3); Blood Urea Nitrogen 6 mg/dL (7-17); Calcium 7.8 mg/dL (8.4-10.2); Carbon Dioxide 17 mmol/L (22-32); Chloride 114 mmol/L (98-107); Estimated Glomerular Filt Rate > 60 mL/min (>60); Globulin 2.7 g/dL (1.7-4.1); Glucose 84 mg/dL (80-110); HEMOLYSIS < 15 (0-50); Potassium 3.7 mmol/L (3.4-5.1); Sodium 138 mmol/L (137-145); Total Protein 5.5 g/dL (6.3-8.2)
[2023-03-07 07:54] LABS: Anisocytosis 2+; Poikilocytosis 1+
[2023-03-07 08:27] VITALS: BP 140/69; PULSE 79; RESP 16; TEMP 36.9; O2SAT 98
[2023-03-07] MEDS: POTASSIUM CHLORIDE 20 MEQ TAB 40 MEQ PO (09:28)
[2023-03-07] MEDS: CYCLOBENZAPRINE 10 MG TABLET PO (09:28)
[2023-03-07] MEDS: NICOTINE 14 PATCH 14 MG TOP (09:28)
[2023-03-07] MEDS: cefTRIAXone 1,000 MG in SODIUM CHLORIDE 0.9% 100 ML 200 MG IV (09:33)
--- NOTE | 2023-03-07 10:37 | PC.NURSE ---
Assess- Patient is alert and oriented x4. She gets up independently and is visiting with her daughter now. IV antibiotic just finished. She states that she has some back discomfort, given flexeril and nicotine patch placed on her l.shoulder. Patient should be discharged today.
--- NOTE | 2023-03-07 11:26 | P.DS_ITS ---
History of Present Illness History of Present Illness Date Patient Seen: 03/07/23 Time Patient Seen: 11:26 Date of Onset of Symptoms: 02/21/23 Chief complaint: short of breath, chest pain Narrative: chief complaint: short of breath/anemia Pt presented to ED with 2 weeks of worsening fatigue. Found to be pancytopenic. 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 Reports hx of hepatitis as a teen that was treated with bedrest only - she later tested positive for HCV as an adult on screening test, and did receive treatment 6-7 years ago was told cured. CT shows cirrhosis/possible HCC and moderate ascites. Bilirubin up, aminotransferases wnl, Child-Bell score is 9. takes only ASA 81 at baseline. Feels generally ok this morning after 5 Us PRBCs yesterday total, appetite is good, able to get up and get to bathroom ok feels steady on her feet. s/p lasix no crackles on ausculation. Color is ok but i think some of that is jaundice obscuring hypoperfusion. appetite has been ok, no recent illness, no nausea no bowel issues no headaches just mostly fatigue. Discharge Providers Provider Date of admission: 03/05/23 21:37 Discharge Date: 03/07/23 Primary care physician: Elmer Soliz MD Consults: GI and heme Discharge provider: Elmer Soliz MD Summary Hospital Course Discharge Diagnosis: #acute microcytic anemia present on admission #UTI #tobacco abuse #cirrhosis, new, per imaging, present on admission, likely 2/2 HCV infection #neutropenia, moderate, present on admission #thrombocytopenia, moderate, present on admission #ascites #hx of benign hypertension not on meds #hx of hepatitis C, unclear if definitively cured #hyperbilirubinemia wi th normal amonitransferases Hospital Course: Ms Wallace received 5 US of PRBCs with lasix and albumin on DoA and her hgb picked up and remained stable the next day. In the setting of her pancytopenia it does seem this is an underproduction issue combined with her daily aspirin use. Her bilirubin remains elevated and it is evident there is a degree of cirrhosis and ascites here. her UTI was treated with rocephin to good effect. Her attitude remains good, we discussed possibility of residual HCV and a viral load check is pending along with an alpha fetoprotein level. She will be discharging to follow up with hematology and GI as outpatient. Status at Discharge Cognitive/behavioral status at discharge: at baseline, oriented Functional status at discharge: independent ambulation Overall status at discharge: patient is progressing back to baseline Exam Vital Signs (past 8 hours): - 03/07/23 04:00 03/07/23 08:27 03/07/23 10:30 Temperature 98.9 F 98.5 F Pulse Rate 87 79 Respiratory Rate 16 16 Blood Pressure 135/77 140/69 Pulse Oximetry 98 98 Oxygen Delivery Method Room Air Oxygen Flow Rate 0 Oxygen Delivery Method Room Air Oxygen Flow Rate 0 Narrative Exam Narrative: cheerful elder finishing juwan NICHOLAS Head: normocephalic and atraumatic (mild scleral icterus) Resp Other: clear to auscultation bilaterally Cardio Other: regular rate, S1/S2 GI Other: active vbowel sounds nontender Skin General: jaundice Neuro General: patient alert, patient awake, patient oriented x3, moves all extremities and no focal motor deficits Extrem General: full ROM, no pedal edema and no calf tenderness Psych Mental Status: mental status grossly normal Objective Labs 03/07/23 05:00 03/07/23 05:00 Labs: Laboratory Results - last 24 hr 03/05/23 03/06/23 03/07/23 17:57 17:45 05:00 WBC 4.5 4.1 L RBC 3.69 L 3.50 L Hgb 7.8 L 7.4 L Hct 24.3 L 23.0 L MCV 65.8 L 65.7 L MCH 21.1 L 21.1 L MCHC 32.1 32.1 RDW 30.2 H 31.2 H Plt Count 95 L 91 L Neut % (Auto) 57.4 Lymph % (Auto) 24.6 L Graham % (Auto) 14.6 H Eos % (Auto) 2.6 Baso % (Auto) 0.8 Neut # (Auto) 2300 Lymph # (Auto) 1000 L Graham # (Auto) 600 Eos # (Auto) 100 Baso # (Auto) 0 RBC Morphology Not Reportable Poikilocytosis 1+ H Anisocytosis 2+ H Sodium Potassium Chloride Carbon Dioxide BUN Creatinine Estimated GFR BUN/Creatinine Ratio Glucose Calcium Total Bilirubin AST ALT Alkaline Phosphatase Total Protein Albumin Globulin Albumin/Globulin Ratio Blood Type O Negative Antibody Screen Negative Crossmatch See Detail 03/07/23 05:00 WBC RBC Hgb Hct MCV MCH MCHC RDW Plt Count Neut % (Auto) Lymph % (Auto) Graham % (Auto) Eos % (Auto) Baso % (Auto) Neut # (Auto) Lymph # (Auto) Graham # (Auto) Eos # (Auto) Baso # (Auto) RBC Morphology Poikilocytosis Anisocytosis Sodium 138 Potassium 3.7 Chloride 114 H Carbon Dioxide 17 L BUN 6 L Creatinine 0.46 L Estimated GFR > 60 BUN/Creatinine Ratio 13.0 Glucose 84 Calcium 7.8 L Total Bilirubin 2.1 H AST 30 ALT 20 Alkaline Phosphatase 94 Total Protein 5.5 L Albumin 2.8 L Globulin 2.7 Albumin/Globulin Ratio 1.0 Blood Type Antibody Screen Crossmatch [facility] Medical History (Updated 03/05/23 @ 21:33 by Toro Thomas DO) Bronchitis Social History household members: none Smoking Status: Current every day smoker alcohol intake: current Discharge Assessment & Plan Assessment and Plan Assessment: #acute microcytic anemia present on admission Hgb stable in 7s after receiving 5Us PRBCs yesterday doing well after lasix and albumin - albumin not much change, breathing is better iron deficiency component vs ACD? added vitc/iron tablets will need to get set up for colonoscopy as outpatient #UTI s/p 2 doses of rocephin now asymptomatic today, monitor and f/u at outpt #tobacco abuse prn nicotine patch ordered #cirrhosis, new, per imaging, present on admission, likely 2/2 HCV infection #neutropenia, moderate, present on admission #thrombocytopenia, moderate, present on admission #ascites #hx of benign hypertension not on meds at time of admission #hx of hepatitis C, unclear if definitively cured #hyperbilirubinemia wi th normal amonitransferases complex set of issues here that will need further diagnostic testing. possible underlying HCC? Referring to hematology as outpatient, checking HCV viral load. Stat referral to GI also. Minimal other medical issues she might be a good candidate for transplant. Child Bell score 9. advised start otc zinc, vit A, vit E for cirrhosis. planning for f/u scope with GI. ADVISED TO STOP ASA 81. other bhat she was not taking any meds at home. dispo: home to f/u with PCP and specialists GI and heme PCP: vice Brendan Soliz MDM: Dalia or Elmer Sierra code: full diet: heart healthy Discharge Plan Discharge Plan Patient Disposition: Home Provider Discharge Comment: take OTC zinc, vit A, vit E also Discharge orders & Medications Prescriptions: New ascorbic acid (vitamin C) [Vitamin C] 500 mg Tablet 500 mg PO BIDWM Qty: 60 0RF ferrous sulfate 325 mg (65 mg iron) Tablet 325 mg PO BIDWM Qty: 60 0RF Medication counseling provided by Pharmacist: Yes Follow up/Referrals: Elmer Soliz MD [Primary Care Provider] - Diet/Activity/Treatments Diet: Diet as Tolerated Visit Report/Discharge Packet Stand Alone Forms: Patient Portal/API, Stroke Signs & Symptoms Discharge Data Primary Care Provider: Elmer Soliz
[2023-03-07 11:47] VITALS: BP 134/63; PULSE 74; RESP 16; TEMP 36.9; O2SAT 98
[2023-03-07 19:11] LABS: Hep C Virus Ab w/Reflex Quant REACTIVE s/c (NEGATIVE)
[2023-03-08 07:31] LABS: Alpha Fetoprotein 2.5 ng/mL (0.0-9.2)
== END 2023-03-07 13:10 | disposition home or self-care (01) | DRG 812 ==
LOC: ED 21:33 → AC 21:38
PROVIDERS: Emergency Medicine; Admitting Provider Family Medicine; Emergency Provider Student in an Organized Health Care Education/Training Program; PCP Family Medicine; Referring Provider Student in an Organized Health Care Education/Training Program; Visit Provider Family Medicine
DX: D50.9 Iron deficiency anemia, unspecified (principal); N39.0 Urinary tract infection, site not specified; D61.818 Other pancytopenia; R18.8 Other ascites; K74.60 Unspecified cirrhosis of liver; E80.6 Other disorders of bilirubin metabolism; F17.210 Nicotine dependence, cigarettes, uncomplicated; Z20.822 Contact with and (suspected) exposure to COVID-19
CPT/HCPCS: 36415; 36430; 71045; 71260; 74177; 80053; 81001; 82105; 82550; 83690; 83735; 83880; 84484; 85007; 85025; 85027; 85610; 85730; 86644; 86803; 86850; 86900; 86901; 87077; 87086; 87186; 87522; 87635; 93005; 99284; 99285; C9803; P9016; J0696; J1940; P9041; Q9967

== ENCOUNTER → 2023-05-13 13:57 | Outpatient (CLI) | payer OTHER, MEDICAID, SELFPAY ==
[2023-03-05 21:44] VITALS: BMI 24.3
--- NOTE | 2023-05-13 | DI.MG.S_ITS ---
BILATERAL DIGITAL SCREENING MAMMOGRAM 3D/2D WITH CAD: 05/13/2023 CLINICAL: Routine screening. Comparison is made to exam dated: 04/30/2007 mammogram - [facility]. There are scattered areas of fibroglandular density in both breasts (category b / 25%-50% glandular tissue). Current study was also evaluated with a Computer Aided Detection (CAD) system. There are benign vascular calcifications in both breasts. No significant masses, calcifications, or other findings are seen in either breast. There has been no significant interval change. IMPRESSION: BENIGN There is no mammographic evidence of malignancy. A 1 year screening mammogram is recommended. Based on the Tyrer Cuzick model (a risk assessment model) the patient's lifetime risk is 5.4% and her 10 year risk is 3.0%. According to the ACR, ACS, and NCCN guidelines, an annual breast MRI exam along with mammogram is recommended if the patient's lifetime risk is 20% or greater. This exam was interpreted at Station ID: [id number]. NOTE: For mammograms, a report in lay terms will be sent to the patient. Approximately 15% of breast malignancies will not be visualized mammographically. In the management of a palpable breast mass, a negative mammogram must not discourage biopsy of a clinically suspicious lesion. Electronically Signed By: Oliver zee/chuck:05/13/2023 16:55:07 letter sent: Normal Exam ACR BI-RADS Category 2: Benign Finding(s) 3342F
== END ==
PROVIDERS: PCP Family Medicine; Referring Provider Family Medicine; Visit Provider Family Medicine
DX: Z12.31 Encounter for screening mammogram for malignant neoplasm of breast (principal)
CPT/HCPCS: 77063; 77067

== ENCOUNTER → 2023-10-03 13:02 | Outpatient (CLI) | payer OTHER, SELFPAY ==
[2023-03-05 21:44] VITALS: BMI 24.3
--- NOTE | 2023-10-03 13:03 | DI.US.S_ITS ---
PROCEDURE: US ABDOMEN LIMITED INDICATIONS: CIRRHOSIS TECHNIQUE: Real-time scanning was performed of the abdominal and retroperitoneal organs, with image documentation. COMPARISON: None. FINDINGS: Liver: Cirrhotic liver morphology. No solid mass. Main portal vein measures 2.0 cm, with hepatopetal blood flow. IMPRESSION: Cirrhosis. No solid mass. Dictated by: Blaze Burgess M.D. on 10/03/2023 at 15:05 Approved by: Blaze Burgess M.D. on 10/03/2023 at 15:06
== END ==
PROVIDERS: PCP Family Medicine; Referring Provider Physician Assistant; Visit Provider Physician Assistant
DX: K74.60 Unspecified cirrhosis of liver (principal); E80.20 Unspecified porphyria; Z86.010 Personal history of colon polyps
CPT/HCPCS: 76705

== ENCOUNTER → 2023-11-06 16:08 | Outpatient (ROUT) | payer OTHER, SELFPAY ==
[2023-03-05 21:44] VITALS: BMI 24.3
[2023-11-06 16:13] LABS: INR 1.6 (0.9-1.3); Prothrombin Time 17.9 SECONDS (9.4-12.5)
== END ==
PROVIDERS: PCP Family Medicine; Visit Provider Physician Assistant
DX: E80.20 Unspecified porphyria (principal); Z86.010 Personal history of colon polyps
CPT/HCPCS: 85610

== ENCOUNTER → 2024-03-25 13:39 | Outpatient (CLI) | payer OTHER, SELFPAY ==
[2023-03-05 21:44] VITALS: BMI 24.3
[2024-03-25 14:27] LABS: Hematocrit 34.3 % (36-46); Hemoglobin 11.5 g/dL (12.0-16.0); Mean Corpuscular HGB Conc 33.4 % (30-36); Mean Corpuscular Hemoglobin 27.5 PG (26-34); Mean Corpuscular Volume 82.2 fL (80-100); Platelet Count 131 X10^3/uL (150-400); Red Blood Cell Count 4.17 X10^6/uL (4.0-5.2); Red Cell Distribution Width 16.7 % (11.6-14.8); White Blood Cell Count 3.9 X10^3/uL (4.5-11.0)
[2024-03-25 15:01] LABS: INR 1.5 (0.9-1.3)
[2024-03-25 15:10] LABS: Alanine Aminotransferase 22 IU/L (<35); Albumin Globulin Ratio 1.3 (1.0-2.8); Alkaline Phosphatase 135 U/L (38-126); Aspartate Aminotransferase 35 IU/L (14-36); BUN Creatinine Ratio 16.1 (6-22); Blood Urea Nitrogen 10 mg/dL (7-17); Carbon Dioxide 24 mmol/L (22-32); Chloride 109 mmol/L (98-107); Estimated Glomerular Filt Rate > 60 mL/min (>60); Glucose 129 mg/dL (80-110); HEMOLYSIS < 15 (0-50); Potassium 3.5 mmol/L (3.4-5.1); Sodium 139 mmol/L (137-145)
[2024-03-27 00:07] LABS: Alpha Fetoprotein 3.2 ng/mL (0.0-9.2)
== END ==
PROVIDERS: PCP Family Medicine; Referring Provider Physician Assistant; Visit Provider Physician Assistant
DX: Z86.010 Personal history of colon polyps (principal); E80.20 Unspecified porphyria
CPT/HCPCS: 36415; 80053; 82105; 85027; 85610

== ENCOUNTER 2024-07-11 11:54 | Emergency (ER) | payer OTHER, SELFPAY ==
[2023-03-05 21:44] VITALS: BMI 24.3
[2024-07-11] VITALS (10 sets, daily range): BP systolic 182–208; BP diastolic 83–94; PULSE 64–81; RESP 16; TEMP 36.4; O2SAT 99–100; BMI 22.7
--- NOTE | 2024-07-11 12:15 | EKG_ITS ---
[address] [id number] [address], [place] [address] Test Date: 2024-07-11 Pat Name: Alysa Wallace Department: Room: Gender: Female Relationship Advisor: BRIAN : 1955 Requested By: Order Number: [id number] Reading MD: Fredy Myrick MD Measurements Intervals [place] Rate: 68 P: 43 CT: 178 QRS: 35 QRSD: 92 T: 55 QT: 442 QTc: 469 Interpretive Statements Normal sinus rhythm Electronically Signed On 07-12-2024 9:26:14 PDT by Fredy Myrick MD
[2024-07-11 12:35] LABS: Add Manual Diff / Slide Review NO; Basophils Absolute Auto 0 /uL (0-100); Basophils Percent Auto 0.5 % (0-2); Eosinophils Absolute Auto 100 /uL (0-450); Eosinophils Percent Auto 2.6 % (2-4); Hematocrit 32.6 % (36-46); Hemoglobin 10.6 g/dL (12.0-16.0); Lymphocytes Absolute Auto 1000 /uL (1100-4500); Lymphocytes Percent Auto 24.9 % (25-40); Mean Corpuscular HGB Conc 32.5 % (30-36); Mean Corpuscular Hemoglobin 25.4 PG (26-34); Monocytes Absolute Auto 500 /uL (0-900); Monocytes Percent Auto 12.9 % (3-14); Neutrophils Absolute Auto 2300 /uL (1500-7000); Neutrophils Percent Auto 59.1 % (50-75); Platelet Count 129 X10^3/uL (150-400); Red Blood Cell Count 4.18 X10^6/uL (4.0-5.2); Red Cell Distribution Width 17.9 % (11.6-14.8); White Blood Cell Count 3.8 X10^3/uL (4.5-11.0)
[2024-07-11 12:43] LABS: INR 1.4 (0.9-1.3); Prothrombin Time 16.3 SECONDS (9.4-12.5)
[2024-07-11 12:53] LABS: Ammonia (NH3) 120 umol/L (9-30)
[2024-07-11 12:54] LABS: Ethanol (ETOH) < 10 mg/dL
[2024-07-11 12:55] LABS: Alanine Aminotransferase 28 IU/L (<35); Albumin 3.9 g/dL (3.5-5.0); Albumin Globulin Ratio 1.2 (1.0-2.8); Alkaline Phosphatase 146 U/L (38-126); Aspartate Aminotransferase 46 IU/L (14-36); Bilirubin Total 1.7 mg/dL (0.2-1.3); Blood Urea Nitrogen 12 mg/dL (7-17); Carbon Dioxide 15 mmol/L (22-32); Chloride 113 mmol/L (98-107); Estimated Glomerular Filt Rate > 60 mL/min (>60); Globulin 3.2 g/dL (1.7-4.1); Glucose 134 mg/dL (80-110); HEMOLYSIS < 15 (0-50); Lipase 196 U/L (23-300); Potassium 3.6 mmol/L (3.4-5.1); Sodium 140 mmol/L (137-145); Total Protein 7.1 g/dL (6.3-8.2)
[2024-07-11 14:06] LABS: Appearance Urine UA SL CLOUDY; Bilirubin Urine UA 1+ (NEGATIVE); Color Urine UA YELLOW; Glucose Urine UA NEGATIVE (Negative); Ketones Urine UA NEGATIVE (NEGATIVE); Leukocyte Esterase Urine UA 2+ (NEGATIVE); Nitrite Urine UA NEGATIVE (Negative); Occult Blood Urine UA 2+ (Negative); Protein Urine UA TRACE (Negative); Urobilinogen Urine UA >=8.0 E.U./dL (0.2)
[2024-07-11 14:09] LABS: Ictotest Urine Negative (Negative); Urine Volume Low Vol <1mL unspun; pH Urine UA 6.5 (4.5-8.0)
[2024-07-11 14:10] LABS: Squamous Epithelial Cell Urine 10-30 /HPF (0-5/HPF); WBC Urine 5-10/HPF (0-5/HPF)
[2024-07-11 14:11] LABS: RBC Urine 0-1/HPF (0-5/HPF)
[2024-07-11 14:12] LABS: Bacteria Urine Few (2-10); Culture Indicated Urine Specimen Cultured
--- NOTE | 2024-07-11 14:16 | DI.CT.S_ITS ---
PROCEDURE: CT HEAD/BRAIN WO CON INDICATIONS: alt MSE TECHNIQUE: Noncontrast 4.5 mm thick angled axial sections acquired from the foramen magnum to the vertex, with coronal and sagittal reformats. For radiation dose reduction, the following was used: automated exposure control, adjustment of mA and/or kV according to patient size. COMPARISON: None. FINDINGS: Image quality: Diagnostic. CSF spaces: Basal cisterns are patent. No extra-axial fluid collections. Ventricles are normal in size and shape. Brain: No midline shift. No intracranial masses or hemorrhage. Corrigan-white matter interface is normal. Skull and face: Calvarium and visualized facial bones are intact, without suspicious lesions. Sinuses: Visualized sinuses and mastoids are clear. IMPRESSION: No acute intracranial pathology. Approved by: Mac Zarate M.D. on 07/11/2024 at 14:13
[2024-07-11] MEDS: LACTULOSE 20 GM/30 ML SOLUTION PO (14:32)
--- NOTE | 2024-07-11 15:26 | ED.AMS ---
HPI - Altered Mental Status General Chief Complaint: Weakness Stated Complaint: Lethargic Time Seen by Provider: 07/11/24 12:12 Source: patient and family Mode of arrival: Ambulatory History of Present Illness HPI narrative: 69-year-old female with history of alcohol use for many years, last alcohol use yesterday, seemed confused per family, had run into a pole yesterday while walking, no ground level fall, denies headache, denies forehead or other facial pain. Denies neck pain. Denies chest pain and shortness of breath trouble breathing. No fevers or chills. History of prior GI gastrointestinal bleeding requiring transfusion, no recent black or red stools, no abdominal pain, no emesis. Denies dizziness upon walking or changes position. Related Data Home Medications Medication Instructions Recorded Confirmed vitamin A 2,400 mcg capsule 2,400 mcg PO DAILY 03/20/23 04/17/23 vitamin E 100 unit capsule 180 mg PO DAILY 03/20/23 04/17/23 zinc 50 mg capsule 50 mg PO DAILY 03/20/23 04/17/23 cholecalciferol (vitamin D3) 25 25 mcg PO DAILY 04/17/23 04/17/23 mcg (1,000 unit) capsule (Vitamin D3) Previous Rx's Medication Instructions Recorded ascorbic acid (vitamin C) 500 mg 500 mg PO BIDWM #60 tabs 03/07/23 tablet (Vitamin C) ferrous sulfate 325 mg (65 mg 325 mg PO BIDWM #60 tabs 03/07/23 iron) tablet lactulose 20 gram/30 mL oral 20 g (30 mL) PO BID #1,200 mL 07/11/24 solution Allergies Allergy/AdvReac Type Severity Reaction Status Date / Time Sulfa (Sulfonamide Allergy Mild stomach Verified 03/05/23 19:36 Antibiotics) issues Review of Systems Review of Systems Narrative: see HPI Patient History Medical History (Updated 07/11/24 @ 17:11 by Juan Ramon Blanca MD) Bronchitis Social History household members: none Smoking Status: Current every day smoker alcohol intake: current Smoking Status: Current every day smoker tobacco type: cigarettes alcohol intake frequency: a few times a week Substance Use Type: does not use Exam Narrative Exam Narrative: GENERAL: Well-developed patient, in mild distress. Slow speech HEAD: Atraumatic. Normocephalic. EYES: Pupils equal round and reactive. Extraocular motions intact. No scleral icterus. No injection or drainage. ENT: Nose without bleeding, purulent drainage. Throat without erythema, tonsillar hypertrophy or exudate. Airway patent. NECK: Trachea midline. Non tender CARDIOVASCULAR: Regular rate and rhythm without murmurs, gallops, or rubs. RESPIRATORY: Clear to auscultation. Breath sounds equal bilaterally. No wheezes, rales, or rhonchi. GASTROINTESTINAL: Abdomen soft, non-tender, nondistended. EXTREMITIES: No edema or joint tenderness. BACK: Nontender without deformity or crepitance. No flank tenderness. NEURO: AOx3. Nonfocal neuro exam, no asterixis, no tremulousness SKIN: No rash or erythema of visible areas Initial Vital Signs Initial Vital Signs: Vital Signs Temperature 97.6 F 07/11/24 11:57 Pulse Rate 70 07/11/24 11:57 Respiratory Rate 16 07/11/24 11:57 Blood Pressure 196/94 H 07/11/24 11:57 Pulse Oximetry 100 07/11/24 11:57 Oxygen Delivery Method Room Air 07/11/24 11:57 Course Orders Ordered: Discontinued Medications Lactulose (Lactulose 20 Gm/30 Ml Solution) 20 gm PO NOW ONE Stop: 07/11/24 14:18 Last Admin: 07/11/24 14:32 Dose: 20 gm Documented By: TAPAN Ondansetron HCl (Ondansetron 4 Mg/2 Ml Inj) 4 mg IV NOW PRN PRN Reason: Nausea And Vomiting Ondansetron HCl (Ondansetron 4 Mg Odt) 4 mg PO NOW PRN PRN Reason: Nausea And Vomiting Vital Signs Vital signs: Vital Signs - 8 hr 07/11/24 11:57 07/11/24 13:58 07/11/24 13:59 Temperature 97.6 F Pulse Rate 70 81 Respiratory Rate 16 Blood Pressure 196/94 H 208/91 H Pulse Oximetry 100 100 Oxygen Delivery Method Room Air 07/11/24 13:59 07/11/24 14:00 07/11/24 14:00 Temperature Pulse Rate 74 64 Respiratory Rate Blood Pressure 201/88 H Pulse Oximetry 100 100 Oxygen Delivery Method 07/11/24 14:30 07/11/24 14:30 07/11/24 15:00 Temperature Pulse Rate 70 72 Respiratory Rate Blood Pressure 182/83 H Pulse Oximetry 99 99 Oxygen Delivery Method 07/11/24 15:30 07/11/24 16:00 07/11/24 16:27 Temperature Pulse Rate 68 66 71 Respiratory Rate Blood Pressure Pulse Oximetry 100 100 99 Oxygen Delivery Method 07/11/24 16:27 07/11/24 16:30 07/11/24 16:30 Temperature Pulse Rate 68 Respiratory Rate Blood Pressure 190/85 H 185/84 H Pulse Oximetry 100 Oxygen Delivery Method MDM - Altered Mental Status Lab Data Attestation: I reviewed the patient's lab results. 07/11/24 12:25 07/11/24 12:25 Labs: Lab Results 07/11/24 07/11/24 Range/Units 12:25 13:57 WBC 3.8 L (4.5-11.0) X10^3/uL RBC 4.18 (4.0-5.2) X10^6/uL Hgb 10.6 L (12.0-16.0) g/dL Hct 32.6 L (36-46) % MCV 78.0 L (80-100) fL MCH 25.4 L (26-34) PG MCHC 32.5 (30-36) % RDW 17.9 H (11.6-14.8) % Plt Count 129 L (150-400) X10^3/uL Neut % (Auto) 59.1 (50-75) % Lymph % (Auto) 24.9 L (25-40) % [place] % (Auto) 12.9 (3-14) % Eos % (Auto) 2.6 (2-4) % Baso % (Auto) 0.5 (0-2) % Neut # (Auto) 2300 (9120-8480) /uL Lymph # (Auto) 1000 L (5057-0881) /uL [place] # (Auto) 500 (0-900) /uL Eos # (Auto) 100 (0-450) /uL Baso # (Auto) 0 (0-100) /uL PT 16.3 H (9.4-12.5) SECONDS INR 1.4 H (0.9-1.3) Sodium 140 (137-145) mmol/L Potassium 3.6 (3.4-5.1) mmol/L Chloride 113 H (98-107) mmol/L Carbon Dioxide 15 L (22-32) mmol/L BUN 12 (7-17) mg/dL Creatinine 0.60 (0.52-1.04) mg/dL Estimated GFR > 60 (>60) mL/min BUN/Creatinine Ratio 20.0 (6-22) Glucose 134 H (80-110) mg/dL Calcium 9.0 (8.4-10.2) mg/dL Total Bilirubin 1.7 H (0.2-1.3) mg/dL AST 46 H (14-36) IU/L ALT 28 (<35) IU/L Alkaline Phosphatase 146 H (38-126) U/L Ammonia 120 H (9-30) umol/L Total Protein 7.1 (6.3-8.2) g/dL Albumin 3.9 (3.5-5.0) g/dL Globulin 3.2 (1.7-4.1) g/dL Albumin/Globulin Ratio 1.2 (1.0-2.8) Lipase 196 (23-300) U/L Urine Color Yellow Urine Appearance Sl cloudy Urine pH 6.5 (4.5-8.0) Ur Specific [place] 1.010 (1.000-1.035) Urine Protein Trace H (Negative) Urine Glucose (UA) Negative (Negative) g/dL Urine Ketones Negative (NEGATIVE) Urine Occult Blood 2+ H (Negative) Urine Nitrate Negative (Negative) Urine Bilirubin 1+ H (NEGATIVE) Ur Bilirubin Confirm Negative (Negative) Urine Urobilinogen >=8.0 (0.2) E.U./dL Ur Leukocyte Esterase 2+ H (NEGATIVE) Urine RBC 0-1/hpf (0-5/HPF) Urine WBC 5-10/hpf H (0-5/HPF) Ur Squamous Epith Cells 10-30 /hpf H D (0-5/HPF) Urine Bacteria Few (2-10) H (None) Ur Culture Indicated? Specimen cultured Vol Urine Centrifuged Low vol <1ml unspun A Ethyl Alcohol < 10 ( - 10) mg/dL Imaging Data CT scan - head: Radiologist's Impression: [address] [address] [address] Scan Report Signed Patient: Alysa Wallace MR#: [id number] : 1955 Acct:[id number] Age/Sex: 69 / F Date of Service: 07/11/24 Loc: ED Accession Number: [id number] Procedure: CT head/brain wo con Ordering Provider: Juan Ramon Blanca MD PROCEDURE: CT HEAD/BRAIN WO CON INDICATIONS: alt MSE TECHNIQUE: Noncontrast 4.5 mm thick angled axial sections acquired from the foramen magnum to the vertex, with coronal and sagittal reformats. For radiation dose reduction, the following was used: automated exposure control, adjustment of mA and/or kV according to patient size. COMPARISON: None. FINDINGS: Image quality: Diagnostic. CSF spaces: Basal cisterns are patent. No extra-axial fluid collections. Ventricles are normal in size and shape. Brain: No midline shift. No intracranial masses or hemorrhage. Corrigan-white matter interface is normal. Skull and face: Calvarium and visualized facial bones are intact, without suspicious lesions. Sinuses: Visualized sinuses and mastoids are clear. IMPRESSION: No acute intracranial pathology. Approved by: Mac Zarate M.D. on 07/11/2024 at 14:13 ECG Data Attestation: I personally reviewed and interpreted this ECG as follows: Interpretation: Normal sinus rhythm with rate 68, no obvious ST segment elevation or depression changes. MA 178, QRS 92, QTC 469. [facility] Narrative Medical decision making narrative: 69-year-old female with some confusion, ongoing alcohol abuse, most recent drink yesterday, was walking and ran into a pole yesterday, family members and friends seem to think that she seems more confused. CT head study had been requested. Labs pending. Hemoglobin 10 noted, slight decreased from prior value, denies recent black or red stooling although she has had gastrointestinal bleeding in the past. Reportedly had upper and lower endoscopy studies recent weeks that were negative per family. Continues to drink alcohol, last use yesterday. CT head noncontrast study no acute changes, see radiology report Lactulose 120 markedly elevated, apparently this is a new problem, not known to have hepatic encephalopathy per family members. P.o. lactulose dose given. Patient improved, ambulatory, does not likely need admission at this time, family would like to take patient home, we will continue lactulose use for now. Advised close follow up with clinic to repeat hemoglobin to see if it is trending downward, so there could be occult bleeding, look for black or red stools. No fevers or chills to suggest obvious infection at this time. Urinalysis was contaminated, repeat advised but patient did not want to have repeat study. Urine culture was requested from that specimen. No antibiotics for now. Home with family, a prescription for lactulose to continue sent to pharmacy. Diarrhea warnings given. Discharge home with family per request Discharge Plan Departure Patient Disposition: Home Clinical Impression: Confusion, Hepatic encephalopathy Activity Restrictions/Additional Instructions: Confusion and lethargy, history of ongoing alcohol abuse, most recent drink of alcohol yesterday, possible recent head injury walking into a pole. CT head scan noncontrast study showed no acute injuries, per Radiology report. Labs were sent while urine triage, ammonia level was quite elevated, this can be due to hepatic encephalopathy due to alcohol abuse in altered liver functions. Oral lactulose dose was given in the emergency department, which can cause loose stools, but helps you clear the ammonia and other toxins that the liver helps get rid of when it is normally functioning. Prescription for further lactulose to use as an outpatient, if this causes persistent diarrhea then consider reduced dose. Recheck symptoms with your regular doctor in the next couple of days, and to consider repeat lab testing. Return to this/nearest emergency department for any change worsening symptoms or any concerns prior Prescriptions: New lactulose 20 gram/30 mL solution 20 g PO BID Qty: 1200 0RF No Action ascorbic acid (vitamin C) [Vitamin C] 500 mg Tablet 500 mg PO BIDWM Qty: 60 0RF ferrous sulfate 325 mg (65 mg iron) Tablet 325 mg PO BIDWM Qty: 60 0RF vitamin A 2,400 mcg Capsule 2,400 mcg PO DAILY vitamin E 100 unit Capsule 180 mg PO DAILY zinc 50 mg Capsule 50 mg PO DAILY cholecalciferol (vitamin D3) [Vitamin D3] 25 mcg (1,000 unit) Capsule 25 mcg PO DAILY Referrals: Elmer Soliz MD [Primary Care Provider] - Stand Alone Forms: Patient Portal/API
== END 2024-07-11 17:25 | disposition home or self-care (01) ==
PROVIDERS: Emergency Provider Emergency Medicine; PCP Family Medicine
DX: R41.0 Disorientation, unspecified (principal); K76.82 Hepatic encephalopathy; R10.9 Unspecified abdominal pain
CPT/HCPCS: 36415; 70450; 80053; 80320; 81001; 82140; 83690; 85025; 85610; 87086; 93005; 93010; 99283; 99284

== ENCOUNTER → 2024-09-30 11:20 | Outpatient (CLI) | payer OTHER, SELFPAY ==
[2023-03-05 21:44] VITALS: BMI 24.3
--- NOTE | 2024-09-30 | DI.MG.S_ITS ---
BILATERAL DIGITAL SCREENING MAMMOGRAM 3D/2D WITH CAD: 09/30/2024 CLINICAL: Routine screening. Comparison is made to exams dated: 05/13/2023 mammogram, 04/30/2007 mammogram, and 04/18/2000 mammogram - [facility]. There are scattered areas of fibroglandular density (category b / 25%-50% glandular tissue). Current study was also evaluated with a Computer Aided Detection (CAD) system. No significant masses, calcifications, or other findings are seen in either breast. There has been no significant interval change. IMPRESSION: NEGATIVE There is no mammographic evidence of malignancy. A 1 year screening mammogram is recommended. Based on the Tyrer Cuzick model (a risk assessment model) the patient's lifetime risk is 5.1% and her 10 year risk is 3.0%. According to the ACR, ACS, and NCCN guidelines, an annual breast MRI exam along with mammogram is recommended if the patient's lifetime risk is 20% or greater. This exam was interpreted at Station ID: [id number]. NOTE: For mammograms, a report in lay terms will be sent to the patient. Approximately 15% of breast malignancies will not be visualized mammographically. In the management of a palpable breast mass, a negative mammogram must not discourage biopsy of a clinically suspicious lesion. Electronically Signed By: Dona Crain M.D., Ph.D. tigist/chuck:10/01/2024 08:55:27 letter sent: Normal Exam ACR BI-RADS Category 1: Negative
== END ==
PROVIDERS: PCP Family Medicine; Referring Provider Family Medicine; Visit Provider Family Medicine
DX: Z12.31 Encounter for screening mammogram for malignant neoplasm of breast (principal)
CPT/HCPCS: 77063; 77067

== ENCOUNTER → 2024-10-26 13:48 | Outpatient (CLI) | payer OTHER, SELFPAY ==
[2023-03-05 21:44] VITALS: BMI 24.3
[2024-10-29 11:14] LABS: Anti Mitochondrial ABY IGG <20.0 Units (0.0-20.0); Smooth Muscle Antibody 17 Units (0-19)
[2024-10-30 15:38] LABS: ANA Screen, IFA Negative (.)
== END ==
PROVIDERS: PCP Family Medicine; Referring Provider Internal Medicine Gastroenterology; Visit Provider Internal Medicine Gastroenterology
DX: K76.9 Liver disease, unspecified (principal); Z86.0101 Personal history of adenomatous and serrated colon polyps; K74.60 Unspecified cirrhosis of liver
CPT/HCPCS: 36415; 83516; 86015; 86038; 86376

== ENCOUNTER → 2025-01-15 | Outpatient (CLI) | payer OTHER, SELFPAY ==
[2023-03-05 21:44] VITALS: BMI 24.3
--- NOTE | 2025-01-15 11:13 | DI.MRI.S_ITS ---
PROCEDURE: MR ABDOMEN LIVER PROTOCOL INDICATIONS: slight increase in size of 1.3cm hypochoic nodule TECHNIQUE: Coronal HASTE, axial 2D FLASH in- and [id number]; axial breath-hold T2 FSE. Dynamic axial VIBE during the administration of contrast; post-contrast coronal VIBE or 2D FLASH with fat saturation from the hepatic dome to the iliac crests. Optional diffusion weighted imaging and ADC may be performed. COMPARISON: Outside Facility, US, US ABDOMEN LIMITED, 09/28/2024, 8:00. FINDINGS: Image quality: Diagnostic. Lung bases: Unremarkable. Liver: Cirrhosis. Moderate hepatic steatosis with signal dropout on the out of phase sequence. Contrast timing is adequate for evaluation of HCC. No observations of probably or definitely HCC. No regions of signal dropout on the hepatobiliary phase . No observation corresponding to the hypoechoic lesion seen on comparison ultrasound. Gallbladder: No gallstones or wall thickening. Biliary ducts: No biliary dilation. Pancreas: No ductal dilation. Spleen: Enlarged. Adrenal Glands: No adrenal nodules. Kidneys and Ureters: No hydronephrosis. No solid mass. No complex renal cystic lesion which requires follow up. Stomach and Bowel: Normal colonic caliber, without significant wall thickening. Peritoneum: No abnormal intraperitoneal fluid. No free air. Ventral Wall: No hernia. Abdominal Nodes: No retroperitoneal or mesenteric adenopathy by size criteria. Vessels: Aorta and inferior vena cava are normal in size. Extensive portosystemic collaterals. Bones: No aggressive osseous abnormality. IMPRESSION: Cirrhotic liver morphology. No observations of probably or definitely HCC. No observation seen in the left hepatic lobe to correlate with comparison ultrasound. Recommend short-term follow-up with ultrasound (3-6 months) to evaluate for change. Dictated by: Blaze Burgess M.D. on 01/25/2025 at 19:53 Approved by: Blaze Burgess M.D. on 01/25/2025 at 20:00
== END ==
PROVIDERS: PCP Family Medicine; Referring Provider Family Medicine; Visit Provider Family Medicine
DX: K76.9 Liver disease, unspecified (principal); Z86.0100 Personal history of colon polyps, unspecified; D50.9 Iron deficiency anemia, unspecified; K74.60 Unspecified cirrhosis of liver
CPT/HCPCS: 74183; A9579

== ENCOUNTER → 2025-04-01 11:25 | Outpatient (CLI) | payer OTHER, SELFPAY ==
[2023-03-05 21:44] VITALS: BMI 24.3
--- NOTE | 2025-04-01 11:27 | DI.RAD.S_ITS ---
PROCEDURE: XR KNEE LT 1TO2V INDICATIONS: L KNEE PAIN TECHNIQUE: 1 views of the knee were acquired. COMPARISON: [facility], ANGELA, BILATERAL KNEE 3VW, 04/26/2016, 14:20. [facility], ANGELA, XR KNEE STANDING BI, 04/01/2025, 10:35. FINDINGS: Bones: No fractures or dislocations. No suspicious bony lesions. Moderate patellofemoral compartment narrowing. Periarticular osteophytes. No erosions. Soft tissues: Mild joint effusion. No suspicious soft tissue calcifications. IMPRESSION: Moderate patellofemoral arthritic change. Dictated by: Shayla Carlos M.D. on 04/01/2025 at 15:59 Approved by: Shayla Carlos M.D. on 04/01/2025 at 16:00
--- NOTE | 2025-04-01 11:27 | DI.RAD.S_ITS ---
PROCEDURE: XR KNEE STANDING BI INDICATIONS: L KNEE PAIN TECHNIQUE: 1 views of the knee(s) COMPARISON: [facility], [place], BILATERAL KNEE 3VW, 04/26/2016, 14:20. FINDINGS: Bones: No acute fractures or dislocations. Left knee demonstrates moderate to severe medial and mild to moderate lateral compartment narrowing. Moderate bicompartmental, medial greater than lateral compartment narrowing is present on the right. Periarticular osteophytes are more prominent on the left. No erosions. Small areas of subchondral sclerosis most prominent in the left medial compartment. There has been overall progression since 2016. Soft tissues: No knee joint effusions. No suspicious soft tissue calcification. IMPRESSION: Bicompartmental overall [id number] arthritic changes most severe in the medial left compartment. Dictated by: Shayla Carlos M.D. on 04/01/2025 at 15:58 Approved by: Shayla Carlos M.D. on 04/01/2025 at 15:59
== END ==
PROVIDERS: PCP Family Medicine; Referring Provider Family Medicine; Visit Provider Family Medicine
DX: M25.562 Pain in left knee (principal); M25.462 Effusion, left knee; G89.29 Other chronic pain
CPT/HCPCS: 73560; 73565

== ENCOUNTER → 2025-10-04 13:45 | Outpatient (CLI) | payer OTHER, SELFPAY ==
[2023-03-05 21:44] VITALS: BMI 24.3
[2025-10-04 14:23] LABS: Add Manual Diff / Slide Review NO; Hematocrit 45.8 % (36-46); Hemoglobin 16.0 g/dL (12.0-16.0); Lymphocytes Absolute Auto 1100 /uL (1100-4500); Mean Corpuscular HGB Conc 35.0 % (30-36); Mean Corpuscular Hemoglobin 32.6 PG (26-34); Mean Corpuscular Volume 93.2 fL (80-100); Platelet Count 98 X10^3/uL (150-400)
[2025-10-04 14:48] LABS: INR 1.4 (0.9-1.3); Prothrombin Time 15.8 SECONDS (9.4-12.5)
[2025-10-04 14:53] LABS: Alanine Aminotransferase 33 IU/L (<35); Albumin 3.9 g/dL (3.5-5.0); Albumin Globulin Ratio 1.2 (1.0-2.8); Alkaline Phosphatase 197 U/L (38-126); Blood Urea Nitrogen 9 mg/dL (7-17); Calcium 8.9 mg/dL (8.4-10.2); Carbon Dioxide 25 mmol/L (22-32); Chloride 106 mmol/L (98-107); Estimated Glomerular Filt Rate > 60 mL/min (>60); Globulin 3.3 g/dL (1.7-4.1); Glucose 136 mg/dL (70-99); HEMOLYSIS < 15 (0-50); Potassium 3.5 mmol/L (3.4-5.1); Sodium 141 mmol/L (137-145); Total Protein 7.2 g/dL (6.3-8.2)
== END ==
PROVIDERS: PCP Family Medicine; Referring Provider Family Medicine; Visit Provider Internal Medicine Gastroenterology
DX: Z12.89 Encounter for screening for malignant neoplasm of other sites (principal); K74.60 Unspecified cirrhosis of liver
CPT/HCPCS: 36415; 80053; 85025; 85610

== ENCOUNTER → 2025-10-11 16:37 | Outpatient (CLI) | payer OTHER, SELFPAY ==
[2023-03-05 21:44] VITALS: BMI 24.3
--- NOTE | 2025-10-11 16:37 | DI.MG.S_ITS ---
MM screening mammo BI: 10/11/2025. BI-RADS: 2 CLINICAL: 70-year old female for bilateral screening mammogram. Tyrer-Cuzick lifetime risk of 3.4%. No personal or first-degree family history of breast cancer. PRIOR EXAMS 09/30/2024, 05/13/2023. MAMMOGRAPHY TECHNIQUE: 2D and 3D (tomosynthesis) digital mammographic views obtained, with additional images as needed for full coverage. Current study was also evaluated with a Computer Aided Detection (CAD) system. DENSITY B. There are scattered areas of fibroglandular density. MAMMOGRAPHY FINDINGS Bilateral: Typically-benign vascular calcifications noted. No significant change from comparison. IMPRESSION: * No evidence of malignancy with benign findings. RECOMMENDATIONS Bilateral * Annual screening mammography. OVERALL ASSESSMENT CATEGORY BI-RADS-2: Benign. The [employer] recommends annual screening mammography beginning at age 40 for women with average risk of breast cancer. ELECTRONICALLY SIGNED: Lorna Mesa M.D. on 10/12/2025 at 01:00:25 PM PT Interpreting Station ID: [id number]
== END ==
LOC: MAMMO 16:37
PROVIDERS: PCP Family Medicine; Referring Provider Family Medicine; Visit Provider Family Medicine
DX: Z12.31 Encounter for screening mammogram for malignant neoplasm of breast (principal)
CPT/HCPCS: 77063; 77067